=== PATIENT | female | born 1995 | race Hispanic/Latino ===

== ENCOUNTER 2018-02-03 15:46 | Emergency (ER) | payer OTHER ==
--- NOTE | 2018-02-03 17:22 | ER ---
Nurse's Notes [facility] Name: Jannet Dhillon Age: 22 yrs Sex: Female : 1995 Arrival Date: 02/03/2018 Time: 15:47 Bed 25 Private MD: Diagnosis: Presentation: 02/03 16:06 Presenting complaint: Patient states: Boil to gluteal cleft for 4 days. Denies aj drainage. Seen by Electrical Products Engineer yesterday, given ABX and took first dose last night at 2100. Transition of care: patient was not received from another setting of care. Onset of symptoms was February 01, 2018. Risk Assessment: Do you want to hurt yourself or someone else? Patient reports no desire to harm self or others. Initial Sepsis Screen: Does the patient meet any 2 criteria? No. Patient's initial sepsis screen is negative. Does the patient have a suspected source of infection? No. Patient's initial sepsis screen is negative. Care prior to arrival: None. 16:06 Method Of Arrival: Ambulatory aj 16:06 Acuity: JIM 3 aj Triage Assessment: 16:10 General: Appears in no apparent distress. comfortable, Behavior is calm, cooperative, aj appropriate for age. Pain: Complains of pain in gluteal cleft. Neuro: Level of Consciousness is awake, alert, obeys commands, Oriented to person, place, time, situation, Appropriate for age. Respiratory: Airway is patent Respiratory effort is even, unlabored, Respiratory pattern is regular, symmetrical. Derm: Skin is intact, is healthy with good turgor, Skin is pink, warm \T\ dry. normal, Abscess located on gluteal cleft. DATA CONVERSION ANALYST: 16:10 LMP 01/15/2018 aj Historical: - Allergies: 16:10 No Known Allergies; aj - Home Meds: 16:10 clindamycin HCl 300 mg Oral cap 1 cap every 6 hours [Active]; aj - PMHx: 16:10 None; aj - PSHx: 16:10 None; aj - Immunization history:: Adult Immunizations up to date. - Social history:: Smoking status: Patient/guardian denies using tobacco. - Ebola Screening: : Patient negative for fever greater than or equal to 101.5 degrees Fahrenheit, and additional compatible Ebola Virus Disease symptoms Patient denies exposure to infectious person Patient denies travel to an Ebola-affected area in the 21 days before illness onset No symptoms or risks identified at this time. Vital Signs: 16:10 BP 116 / 89; Pulse 54; Resp 16; Temp 98.6; Pulse Ox 98% on R/A; Weight 81.65 kg; Height aj 5 ft. 4 in. (162.56 cm); 16:10 Body Mass Index 30.90 (81.65 kg, 162.56 cm) aj ED Course: 15:47 Patient arrived in ED. am2 16:08 Triage completed. aj 16:10 Arm band placed on left wrist. Patient placed in waiting room, Patient notified of wait aj time. 17:02 Gio Tovar PA is PHCP. dago 17:02 Dionte Kurtz MD is Attending Physician. cp Administered Medications: No medications were administered Outcome: 17:22 Patient left the ED. Signatures: Roselia Moya RN RN Kathleen Sylvester RN RN aj Page, Corey, PA PA cp Moreno, Amanda am2
== END 2018-02-03 17:22 | disposition left against medical advice (07) ==
LOC: ER 15:46
DX: Z53.21 Procedure and treatment not carried out due to patient leaving prior to being seen by health care provider (principal)
CPT/HCPCS: 99281